=== PATIENT | male | born 1970 ===

== ENCOUNTER 2019-06-29 09:03 | Day surgery (SDC) | payer OTHER ==
[2019-06-28 16:27] LABS: BASOPHILS % (AUTO) 0.4 % (0.0-5.0); EOSINOPHILS % (AUTO) 0.9 % (0.0-8.0); HEMATOCRIT 46.6 % (42-54); LYMPHOCYTES % (AUTO) 17.4 % (21.0-51.0); MEAN CORPUSCULAR HEMOGLOBIN 31.1 pg (27.0-33.0); MEAN CORPUSCULAR HGB CONC 34.3 g/dL (32.0-36.0); MEAN CORPUSCULAR VOLUME 90.8 fL (79-99); MONOCYTES % (AUTO) 10.3 % (3.0-13.0); NUCLEATED RED BLOOD CELLS 0.1 % (0.0-0.19); PLATELET COUNT (AUTO) 288 K/uL (130-400); RED BLOOD CELL COUNT(AUTO) 5.13 MIL/uL (4.50-6.20); RED CELL DISTRIBUTION WIDTH 13.5 % (11.0-15.5); WHITE BLOOD COUNT (AUTO) 9.6 K/uL (4.8-10.8)
[2019-06-28 16:39] VITALS: BP 139/97
[~2019-06-29] VITALS: Ht 193 cm; Wt 101.9 kg
[2019-06-29] VITALS (15 sets, daily range): BP systolic 125–146; BP diastolic 80–91
[~2019-06-29 09:03] MED LIST: CEFAZOLIN 3GM /D5W 100ML 100 ML IV SCH; OMEP20TA25 PO
--- NOTE | 2019-06-29 09:30 | NUR ---
POTENTIAL FOR INFECTION: SHAVED RIGHT SHOULDER / RIGHT UPPER ARM PER KANDI SMITH, FOLLOWED BY WIPING SITE WITH AMANDA: 2% CHLORHEXIDINE GLUCONATE CLOTH PATIENTS PRE-OP SKIN PREP.
[2019-06-29] MEDS ORDERED: CEFAZOLIN SODIUM 1 GM VIAL ONE (10:49)
[2019-06-29] MEDS ORDERED: LACTATED RINGERS 1000ML 1,000 ML IV ONE (10:49)
[2019-06-29] MEDS ORDERED: SUCCINYLCHOLINE 200MG/10ML SYR ONE (11:41)
[2019-06-29] MEDS ORDERED: FENTANYL CITRATE PF 50 MCG/1 ML 2ML VIAL ONE (11:42)
[2019-06-29] MEDS ORDERED: LIDOCAINE PF 2% 5ML ABBOJECT ONE (11:42)
[2019-06-29] MEDS ORDERED: PROPOFOL 10 MG/ML 20ML VIAL IV ONE (11:42)
[2019-06-29] MEDS ORDERED: ROCURONIUM 10MG/1ML SYR 10 MG/ML ML ONE (11:42)
[2019-06-29] MEDS ORDERED: ROPIVACAINE 0.5% 5MG/ML 30ML IJ ONE (11:44)
[2019-06-29] MEDS ORDERED: EPINEPHRINE 1 MG/ML 30ML VIAL IJ ONE (13:03)
[2019-06-29] MEDS ORDERED: NEOSTIGMINE 5MG/5ML SYR IV ONE (15:40)
[2019-06-29] MEDS ORDERED: ONDANSETRON HCL 4 MG/2 ML VIAL ONE ×3 (15:40→16:39)
[2019-06-29] MEDS ORDERED: GLYCOPYRROLATE 1 MG/5 ML SYRINGE ONE ×2 (15:40→15:55)
[2019-06-29] MEDS ORDERED: HYDR-4457 PO (15:56)
[2019-06-29] MEDS ORDERED: CEPH500B PO (15:56)
[2019-06-29] MEDS ORDERED: NAPR-1192 PO (15:56)
[2019-06-29] MEDS ORDERED: DEXAMETHASONE SOD PHOSPHATE 4 MG/ML 1ML VIAL ONE (16:02)
[2019-06-29] MEDS ORDERED: METOCLOPRAMIDE 10 MG/2 ML VIAL ONE (16:50)
--- NOTE | 2019-06-29 17:35 | NUR ---
post op received pt from [facility], s/p right shoulder arthroscopy. dressing to site dry and intact, arm sling in place. neurovascular checks wnl , pt awake and alert in bed, no distress noted. pt states has hx vertigo feels slight dizzy, will continue to monitor
--- NOTE | 2019-06-29 18:10 | NUR ---
dc dc instructions given to pt daughter with rx x 3 , instructed to fu with dr. moura to keep arm sling in place verbalized understanding.
--- NOTE | 2019-06-29 18:15 | NUR ---
dc pt dc home via [facility], no distress noted accompanied by daughters, pt state feels better. still feels slight dizzy from his vertigo. instructed on fall precautions, verbalized understanding
== END 2019-06-29 18:15 | disposition home or self-care (01) ==
LOC: DAH 09:03
PROVIDERS: ATTEND Orthopaedic Surgery
DX: S46.011A Strain of muscle(s) and tendon(s) of the rotator cuff of right shoulder, initial encounter (principal); M75.41 Impingement syndrome of right shoulder; G89.29 Other chronic pain; M19.011 Primary osteoarthritis, right shoulder; K21.9 Gastro-esophageal reflux disease without esophagitis; Z90.49 Acquired absence of other specified parts of digestive tract; Z79.899 Other long term (current) drug therapy; Z87.891 Personal history of nicotine dependence; W19.XXXA Unspecified fall, initial encounter; Y93.89 Activity, other specified; Y92.322 Soccer field as the place of occurrence of the external cause; Y99.8 Other external cause status
CPT/HCPCS: 29824; 29826; 29827; 36415; 64415; 80048; 85025; A4215; A4221; A4222; A4223; A4565; A4600; A4649 ×6; A4930; A5120; A6204; C1713 ×2; G0168; J0171; J0330; J0690; J1100; J2001; J2405 ×3; J2704; J2710; J2765; J2795; J3010; J3490 ×2; J7030; J7120

== ENCOUNTER 2020-08-20 06:28 | Day surgery (SDC) | payer OTHER ==
[2020-08-13 10:01] LABS: BASOPHILS % (AUTO) 0.6 % (0.0-5.0); EOSINOPHILS % (AUTO) 1.5 % (0.0-8.0); HEMATOCRIT 48.3 % (42-54); LYMPHOCYTES % (AUTO) 22.3 % (21.0-51.0); MEAN CORPUSCULAR HEMOGLOBIN 30.8 pg (27.0-33.0); MEAN CORPUSCULAR VOLUME 90.8 fL (79-99); MONOCYTES % (AUTO) 11.8 % (3.0-13.0); NEUTROPHILS % (AUTO) 63.5 % (40.0-77.0); PLATELET COUNT (AUTO) 299 K/uL (130-400); RED BLOOD CELL COUNT(AUTO) 5.32 MIL/uL (4.50-6.20); WHITE BLOOD COUNT (AUTO) 8.7 K/uL (4.8-10.8)
[2020-08-13 10:20] LABS: POTASSIUM 4.4 mmol/L (3.5-5.1)
[2020-08-19 11:03] VITALS: BP 161/94
[2020-08-20] VITALS (16 sets, daily range): BP systolic 134–158; BP diastolic 84–99
[~2020-08-20] VITALS: Ht 193 cm; Wt 100.3 kg
[2020-08-20] MEDS: CEFAZOLIN SODIUM 1 GM VIAL IVP SCH ×2 (05:00→09:45)
[~2020-08-20 06:28] MED LIST changes: -CEFAZOLIN 3GM /D5W 100ML 100 ML IV SCH; +CETI-89 PO; +MECL-160 PO
[2020-08-20] MEDS ORDERED: LACTATED RINGERS 1000ML 1,000 ML IV ONE (06:53)
[2020-08-20] MEDS ORDERED: SCOPOLAMINE HYDROBROMIDE 1 EACH ADH..PATCH TD ONE (07:57)
[2020-08-20] MEDS ORDERED: SCOPOLAMINE HYDROBROMIDE 1 EACH ADH..PATCH TD SCH (08:00)
[2020-08-20] MEDS ORDERED: ROPIVACAINE 0.5% 5MG/ML 30ML IJ ONE (08:31)
[2020-08-20] MEDS ORDERED: LIDOCAINE PF 2% 5ML ABBOJECT ONE (08:32)
[2020-08-20] MEDS ORDERED: ONDANSETRON HCL 4 MG/2 ML VIAL ONE (08:32)
[2020-08-20] MEDS ORDERED: DEXAMETHASONE SOD PHOSPHATE 10MG/ML 1ML VIAL ONE (08:32)
[2020-08-20] MEDS ORDERED: SUCCINYLCHOLINE CHLORIDE 20 MG/ML 10 ML VIAL ONE (08:32)
[2020-08-20] MEDS ORDERED: FENTANYL CITRATE PF 50 MCG/1 ML 2ML VIAL ONE ×2 (08:33→10:29)
[2020-08-20] MEDS ORDERED: MIDAZOLAM HCL 1 MG/ML 2ML VIAL ONE (08:33)
[2020-08-20] MEDS ORDERED: ROCURONIUM 10MG/1ML SYR 10 MG/ML ML ONE ×2 (08:33→10:29)
[2020-08-20] MEDS ORDERED: PROPOFOL 10 MG/ML 20ML VIAL IV ONE (08:33)
[2020-08-20] MEDS ORDERED: GLYCOPYRROLATE 1 MG/5 ML SYRINGE ONE (08:33)
[2020-08-20] MEDS ORDERED: NEOSTIGMINE 5MG/5ML SYR IV ONE (08:33)
[2020-08-20] MEDS ORDERED: CEFAZOLIN SODIUM 1 GM VIAL ONE (09:54)
[2020-08-20] MEDS ORDERED: CEPH500B PO (11:25)
[2020-08-20] MEDS ORDERED: HYDR-4457 PO (11:25)
[2020-08-20] MEDS ORDERED: IBUP-2077 PO (11:25)
--- NOTE | 2020-08-20 12:40 | NUR ---
PT ARRIVED TO DAY PATIENT VIA STRETCHER BY PRADEEP MATT. PATIENT AAOX3, RESPIRATIONS UNLABORED, VITAL SIGNS STABLE. DENIES ANY PAIN AT THIS TIME. DRESSING TO RIGHT UPPER SHOULDER IS DRY/INTACT. SLING IN PLACE TO RIGHT UPPER EXTREMITY.
--- NOTE | 2020-08-20 13:15 | NUR ---
PATIENT DISCHARGED FROM FACILITY VIA WHEELCHAIR AND ASSISTED INTO PRIVATE VEHICLE DRIVEN BY FAMILY.
== END 2020-08-20 13:15 | disposition home or self-care (01) ==
LOC: DAH 06:28
PROVIDERS: ATTEND Orthopaedic Surgery
DX: M75.101 Unspecified rotator cuff tear or rupture of right shoulder, not specified as traumatic (principal); Z98.890 Other specified postprocedural states
CPT/HCPCS: 23412; 36415; 64415; 80048; 85025; A4649; A4930 ×2; A6204; C1713; J0330; J0690 ×2; J1100; J2001; J2250; J2405; J2704; J2710; J2795; J3010; J3490; J7120 ×2